=== PATIENT | female | born 1930 | race Caucasian/White ===

== ENCOUNTER 2017-02-16 11:55 | Inpatient (IN) | payer MEDICARE ==
[2017-02-16] VITALS (274 sets, daily range): BP systolic 143–180; BP diastolic 52–165; PULSE 76–103; TEMP 97.6–98.1; O2SAT 47–100
[~2017-02-16] VITALS: Ht 165.1 cm; Wt 72.6 kg
[~2017-02-16 11:55] MED LIST: AMARYL4 MG PO; COREG12.5 MG PO; GLUCOPHAGE1000 MG PO; HUMALOG100 U/ML SC; IRON1 POW PO; LANTUS100 U/ML SC; NATURAL IRON65 MG PO; NEURONTIN100 MG/CAP PO; NORVASC 5MG5 MG/TAB PO; PRINIVIL20 MG PO; THERA-D 40004000 IU PO; TYLENOL 325MG325 MG PO; ULTRAM 50MG TAB50 MG PO; VITAMIN B-12100 MCG PO
[2017-02-16] MEDS ORDERED: PLAVIX 75MG TAB75 MG PO (12:35)
[2017-02-16 13:44] LABS: BASO % 0.3 % (0.0-2.0); EOS # 0.3 (0.0-0.7); EOS % 5.6 % (0-4.0); GRAN # 4.4 (1.4-6.5); GRAN % 73.1 % (42.2-75.2); LYMPH # 0.6 (1.2-3.4); LYMPH % 9.6 % (20.0-51.0); MEAN CELL VOLUME 89 fl (80.0-100.0); MEAN CORPUSCULAR HGB CONC 34 g/dl (33.0-37.0); MEAN PLATELET VOLUME 11.1 fl (7.4-10.4); MONO # 0.7 (0.1-0.6); MONO % 10.9 % (1.7-9.3); PLATELET COUNT 273 K/mm3 (130-400); RED BLOOD COUNT 2.48 M/mm3 (4.10-5.30); WHITE BLOOD COUNT 6.1 K/mm3 (4.8-10.8)
[2017-02-16 13:45] LABS: HEMATOCRIT 22.1 % (37.0-47.0); HEMOGLOBIN 7.5 g/dl (12.5-16.0); MEAN CORPUSCULAR HEMOGLOBIN 30 pg (27.0-31.0)
[2017-02-16 13:52] LABS: ADJUSTED CALCIUM 8.7 mg/dL (8.4-10.2); ALBUMIN 3.5 gm/dL (3.5-5.0); CALCIUM 8.3 mg/dL (8.4-10.2); CREATININE, serum 3.42 mg/dL (0.52-1.25); POTASSIUM 3.8 mmol/L (3.4-5.0); TOTAL PROTEIN 5.9 gm/dL (6.4-8.2)
[2017-02-16 15:05] LABS: RETIC % 1.7 % (0.5-3.52)
[2017-02-17] VITALS (726 sets, daily range): BP systolic 124–178; BP diastolic 51–88; PULSE 77–93; TEMP 97.4–98.8; O2SAT 60–100
[2017-02-17 05:31] LABS: BASO % 0.2 % (0.0-2.0); EOS # 0.4 (0.0-0.7); GRAN # 3.9 (1.4-6.5); GRAN % 67.9 % (42.2-75.2); LYMPH # 0.8 (1.2-3.4); MEAN CELL VOLUME 92 fl (80.0-100.0); MEAN CORPUSCULAR HGB CONC 33 g/dl (33.0-37.0); MEAN PLATELET VOLUME 10.6 fl (7.4-10.4); MONO # 0.7 (0.1-0.6); MONO % 11.4 % (1.7-9.3); PLATELET COUNT 258 K/mm3 (130-400); RED BLOOD COUNT 2.28 M/mm3 (4.10-5.30); WHITE BLOOD COUNT 5.8 K/mm3 (4.8-10.8)
[2017-02-17 05:33] LABS: HEMATOCRIT 20.9 % (37.0-47.0); HEMOGLOBIN 6.8 g/dl (12.5-16.0); MEAN CORPUSCULAR HEMOGLOBIN 30 pg (27.0-31.0)
[2017-02-17 05:44] LABS: ADJUSTED CALCIUM 8.7 mg/dL (8.4-10.2); BILIRUBIN,TOTAL 0.7 mg/dL (0.0-1.0); CALCIUM 7.9 mg/dL (8.4-10.2); CREATININE, serum 3.33 mg/dL (0.52-1.25); POTASSIUM 3.8 mmol/L (3.4-5.0); TOTAL PROTEIN 5.4 gm/dL (6.4-8.2)
[2017-02-17 15:08] LABS: COLLECTION METHOD CATHETER
[2017-02-17 15:24] LABS: MUCOUS Present /lpf; PH 5 (5-8); SQUAMOUS EPITHELIAL 0-2 /hpf; URINE APPEARANCE Hazy; URINE BACTERIA Rare /hpf; URINE BILIRUBIN Negative (NEGATIVE); URINE BLOOD 3+ (NEGATIVE); URINE COLOR Yellow; URINE GLUCOSE 2+ (NEGATIVE); URINE KETONE Negative (NEGATIVE); URINE LEUKOCYTE ESTERASE 1+ (NEGATIVE); URINE PROTEIN(semi-quant) 1+ (NEGATIVE); URINE RBC 20-50 /hpf; URINE UROBILINOGEN Negative (NEGATIVE)
[2017-02-18] VITALS (365 sets, daily range): BP systolic 102–152; BP diastolic 46–70; PULSE 75–93; TEMP 98–99.1; O2SAT 45–100
[2017-02-18 07:59] LABS: BASO % 0.5 % (0.0-2.0); EOS # 0.2 (0.0-0.7); GRAN # 4.7 (1.4-6.5); GRAN % 78.8 % (42.2-75.2); LYMPH # 0.4 (1.2-3.4); LYMPH % 7.4 % (20.0-51.0); MEAN CELL VOLUME 92 fl (80.0-100.0); MEAN CORPUSCULAR HGB CONC 32 g/dl (33.0-37.0); MEAN PLATELET VOLUME 10.5 fl (7.4-10.4); MONO # 0.6 (0.1-0.6); MONO % 9.6 % (1.7-9.3); PLATELET COUNT 247 K/mm3 (130-400); RED BLOOD COUNT 2.88 M/mm3 (4.10-5.30); WHITE BLOOD COUNT 5.9 K/mm3 (4.8-10.8)
[2017-02-18 08:08] LABS: ADJUSTED CALCIUM 8.8 mg/dL (8.4-10.2); ALBUMIN 3.1 gm/dL (3.5-5.0); CALCIUM 8.1 mg/dL (8.4-10.2); CREATININE, serum 3.31 mg/dL (0.52-1.25); POTASSIUM 4.1 mmol/L (3.4-5.0); TOTAL PROTEIN 5.5 gm/dL (6.4-8.2)
[2017-02-18 08:15] LABS: HEMATOCRIT 26.5 % (37.0-47.0); HEMOGLOBIN 8.4 g/dl (12.5-16.0); MEAN CORPUSCULAR HEMOGLOBIN 29 pg (27.0-31.0)
[2017-02-19 04:42] VITALS: TEMP 98
[2017-02-19 08:00] VITALS: BP 132/59; PULSE 79; TEMP 98.4
[2017-02-19 08:15] LABS: BASO % 0.3 % (0.0-2.0); EOS # 0.1 (0.0-0.7); EOS % 0.7 % (0-4.0); GRAN # 10.3 (1.4-6.5); LYMPH # 0.6 (1.2-3.4); LYMPH % 5.2 % (20.0-51.0); MEAN CELL VOLUME 94 fl (80.0-100.0); MEAN CORPUSCULAR HGB CONC 31 g/dl (33.0-37.0); MEAN PLATELET VOLUME 11.2 fl (7.4-10.4); MONO # 1.1 (0.1-0.6); MONO % 9.1 % (1.7-9.3); PLATELET COUNT 266 K/mm3 (130-400); RED BLOOD COUNT 2.68 M/mm3 (4.10-5.30); WHITE BLOOD COUNT 12.2 K/mm3 (4.8-10.8)
[2017-02-19 08:18] LABS: CALCIUM 8.4 mg/dL (8.4-10.2); CREATININE, serum 3.61 mg/dL (0.52-1.25); POTASSIUM 3.6 mmol/L (3.4-5.0)
[2017-02-19 08:20] LABS: HEMATOCRIT 25.3 % (37.0-47.0); HEMOGLOBIN 7.8 g/dl (12.5-16.0); MEAN CORPUSCULAR HEMOGLOBIN 29 pg (27.0-31.0)
[2017-02-19 14:30] VITALS: BP 144/63; PULSE 85; TEMP 98
[2017-02-19 15:52] VITALS: BP 154/52; PULSE 81; TEMP 97.4
[2017-02-19 20:12] VITALS: BP 160/57; PULSE 78; TEMP 98.2
[2017-02-20] VITALS (15 sets, daily range): BP systolic 120–174; BP diastolic 36–87; PULSE 73–92; TEMP 97.8–98.8
[2017-02-20 07:19] LABS: BASO % 0.2 % (0.0-2.0); EOS # 0.2 (0.0-0.7); EOS % 2.1 % (0-4.0); GRAN # 6.5 (1.4-6.5); LYMPH # 0.5 (1.2-3.4); LYMPH % 5.9 % (20.0-51.0); MEAN CELL VOLUME 96 fl (80.0-100.0); MEAN CORPUSCULAR HGB CONC 31 g/dl (33.0-37.0); MEAN PLATELET VOLUME 11.7 fl (7.4-10.4); MONO # 0.9 (0.1-0.6); MONO % 11.1 % (1.7-9.3); PLATELET COUNT 186 K/mm3 (130-400); RED BLOOD COUNT 2.15 M/mm3 (4.10-5.30); WHITE BLOOD COUNT 8.1 K/mm3 (4.8-10.8)
[2017-02-20 07:26] LABS: HEMATOCRIT 20.6 % (37.0-47.0); HEMOGLOBIN 6.3 g/dl (12.5-16.0); MEAN CORPUSCULAR HEMOGLOBIN 29 pg (27.0-31.0)
[2017-02-20 07:45] LABS: CALCIUM 7.7 mg/dL (8.4-10.2); CREATININE, serum 3.49 mg/dL (0.52-1.25); POTASSIUM 3.6 mmol/L (3.4-5.0)
[2017-02-21] VITALS (8 sets, daily range): BP systolic 132–153; BP diastolic 32–57; PULSE 79–97; TEMP 98.1–101.2
[2017-02-21 06:43] LABS: BASO % 0.4 % (0.0-2.0); EOS % 0.4 % (0-4.0); GRAN # 9.6 (1.4-6.5); GRAN % 88.4 % (42.2-75.2); LYMPH # 0.2 (1.2-3.4); LYMPH % 2.2 % (20.0-51.0); MEAN CELL VOLUME 93 fl (80.0-100.0); MEAN CORPUSCULAR HGB CONC 33 g/dl (33.0-37.0); MEAN PLATELET VOLUME 11.8 fl (7.4-10.4); MONO # 0.8 (0.1-0.6); MONO % 7.2 % (1.7-9.3); PLATELET COUNT 188 K/mm3 (130-400); RED BLOOD COUNT 2.94 M/mm3 (4.10-5.30); WHITE BLOOD COUNT 10.8 K/mm3 (4.8-10.8)
[2017-02-21 06:44] LABS: HEMATOCRIT 27.4 % (37.0-47.0); HEMOGLOBIN 8.9 g/dl (12.5-16.0); MEAN CORPUSCULAR HEMOGLOBIN 30 pg (27.0-31.0)
[2017-02-21 07:01] LABS: CALCIUM 7.9 mg/dL (8.4-10.2); CREATININE, serum 3.81 mg/dL (0.52-1.25); POTASSIUM 3.3 mmol/L (3.4-5.0)
[2017-02-22 00:16] VITALS: BP 122/40; PULSE 77; TEMP 98.7
[2017-02-22 04:17] VITALS: BP 142/43; PULSE 75; TEMP 98.1
[2017-02-22 06:00] LABS: BASO # 0.1 (0.0-0.2); BASO % 0.5 % (0.0-2.0); EOS # 0.1 (0.0-0.7); EOS % 0.6 % (0-4.0); GRAN # 9.9 (1.4-6.5); GRAN % 88.6 % (42.2-75.2); LYMPH # 0.4 (1.2-3.4); LYMPH % 3.9 % (20.0-51.0); MEAN CELL VOLUME 94 fl (80.0-100.0); MEAN CORPUSCULAR HGB CONC 32 g/dl (33.0-37.0); MEAN PLATELET VOLUME 11.5 fl (7.4-10.4); MONO # 0.6 (0.1-0.6); MONO % 5.7 % (1.7-9.3); PLATELET COUNT 151 K/mm3 (130-400); RED BLOOD COUNT 2.91 M/mm3 (4.10-5.30); WHITE BLOOD COUNT 11.1 K/mm3 (4.8-10.8)
[2017-02-22 06:05] LABS: HEMATOCRIT 27.4 % (37.0-47.0); HEMOGLOBIN 8.7 g/dl (12.5-16.0); MEAN CORPUSCULAR HEMOGLOBIN 30 pg (27.0-31.0)
[2017-02-22 06:09] LABS: CALCIUM 7.9 mg/dL (8.4-10.2)
[2017-02-22 06:17] LABS: CREATININE, serum 4.05 mg/dL (0.52-1.25); POTASSIUM 2.9 mmol/L (3.4-5.0)
[2017-02-22 07:52] VITALS: BP 139/53; PULSE 76; TEMP 98.4
[2017-02-22 11:29] VITALS: BP 140/48; PULSE 76; TEMP 97.9
[2017-02-22 15:18] VITALS: BP 152/49; PULSE 73; TEMP 97.9
[2017-02-22 19:53] VITALS: BP 148/45; PULSE 80; TEMP 98.4
[2017-02-23 00:45] VITALS: BP 133/47; PULSE 73; TEMP 97.8
[2017-02-23 04:24] VITALS: BP 114/70; PULSE 78; TEMP 98.2
[2017-02-23 07:00] LABS: BASO # 0.1 (0.0-0.2); BASO % 0.6 % (0.0-2.0); EOS # 0.2 (0.0-0.7); EOS % 1.8 % (0-4.0); GRAN % 78.8 % (42.2-75.2); LYMPH # 0.6 (1.2-3.4); LYMPH % 7.1 % (20.0-51.0); MEAN CELL VOLUME 96 fl (80.0-100.0); MEAN CORPUSCULAR HGB CONC 32 g/dl (33.0-37.0); MONO % 10.7 % (1.7-9.3); PLATELET COUNT 147 K/mm3 (130-400); RED BLOOD COUNT 2.73 M/mm3 (4.10-5.30); WHITE BLOOD COUNT 8.8 K/mm3 (4.8-10.8)
[2017-02-23 07:16] LABS: HEMATOCRIT 26.1 % (37.0-47.0); HEMOGLOBIN 8.3 g/dl (12.5-16.0); MEAN CORPUSCULAR HEMOGLOBIN 30 pg (27.0-31.0)
[2017-02-23 07:33] LABS: CALCIUM 7.5 mg/dL (8.4-10.2)
[2017-02-23 07:39] LABS: CREATININE, serum 3.98 mg/dL (0.52-1.25)
[2017-02-23 08:24] VITALS: BP 121/61; PULSE 88; TEMP 97.8
[2017-02-23 11:33] VITALS: BP 144/50; PULSE 75; TEMP 97.6
[2017-02-23 12:15] LABS: ARTERIAL BLD GAS O2 SATURATION 94.8 % (92-100); ARTERIAL BLD GAS TCO2 CT 12.7; ARTERIAL BLOOD GAS BASE EXCESS -14.9 (-2-2); ARTERIAL BLOOD GAS HCO3 11.8 meq/L (22-26); ARTERIAL BLOOD GAS PO2 78.8 mmHg (80-100); ARTERIAL BLOOD GAS pH 7.21 (7.35-7.45); OXYHEMOGLOBIN 93.7 %
[2017-02-23 12:16] LABS: ALLEN TEST NO; ATS? YES
[2017-02-23 16:00] VITALS: BP 151/49; PULSE 77; TEMP 97.9
[2017-02-23 19:46] VITALS: BP 136/46; PULSE 70; TEMP 98.5
[2017-02-24] VITALS (8 sets, daily range): BP systolic 136–168; BP diastolic 45–55; PULSE 46–79; TEMP 97.3–98.8
[2017-02-24 15:32] LABS: MEAN CELL VOLUME 95 fl (80.0-100.0); MEAN CORPUSCULAR HGB CONC 31 g/dl (33.0-37.0); MEAN PLATELET VOLUME 11.7 fl (7.4-10.4); PLATELET COUNT 134 K/mm3 (130-400); RED BLOOD COUNT 2.77 M/mm3 (4.10-5.30)
[2017-02-24 15:33] LABS: ADD PATHOLOGY DIFF REVIEW NO; HEMATOCRIT 26.4 % (37.0-47.0); HEMOGLOBIN 8.2 g/dl (12.5-16.0); MEAN CORPUSCULAR HEMOGLOBIN 30 pg (27.0-31.0)
[2017-02-24 15:38] LABS: CALCIUM 7.7 mg/dL (8.4-10.2); MAGNESIUM 2.1 mg/dL (1.6-2.3); POTASSIUM 3.5 mmol/L (3.4-5.0)
[2017-02-24 15:47] LABS: CREATININE, serum 4.25 mg/dL (0.52-1.25)
[2017-02-24 15:51] LABS: BAND 18 % (0-10); LYMPHOCYTE 14 % (20.0-51.0); NEUTROPHILS 65 % (42.0-75.2); PLATELET ESTIMATE NORMAL (NORMAL); TOTAL CELLS COUNTED 100
[2017-02-24 15:53] LABS: ANISOCYTOSIS 1+
[2017-02-25 06:49] LABS: BASO # 0.1 (0.0-0.2); BASO % 0.6 % (0.0-2.0); EOS # 0.3 (0.0-0.7); EOS % 2.8 % (0-4.0); GRAN # 7.1 (1.4-6.5); GRAN % 77.8 % (42.2-75.2); LYMPH # 0.5 (1.2-3.4); LYMPH % 5.3 % (20.0-51.0); MEAN CELL VOLUME 97 fl (80.0-100.0); MEAN CORPUSCULAR HGB CONC 31 g/dl (33.0-37.0); MEAN PLATELET VOLUME 12.2 fl (7.4-10.4); MONO # 1.1 (0.1-0.6); MONO % 12.2 % (1.7-9.3); PLATELET COUNT 131 K/mm3 (130-400); RED BLOOD COUNT 2.65 M/mm3 (4.10-5.30); WHITE BLOOD COUNT 9.1 K/mm3 (4.8-10.8)
[2017-02-25 06:50] LABS: HEMATOCRIT 25.6 % (37.0-47.0); MEAN CORPUSCULAR HEMOGLOBIN 30 pg (27.0-31.0)
[2017-02-25 07:04] LABS: CALCIUM 7.6 mg/dL (8.4-10.2); POTASSIUM 3.2 mmol/L (3.4-5.0)
[2017-02-25 07:08] LABS: CREATININE, serum 4.21 mg/dL (0.52-1.25)
[2017-02-25 09:09] VITALS: BP 125/51; PULSE 59; TEMP 98
[2017-02-25 11:44] VITALS: BP 123/87; PULSE 73; TEMP 97.9
[2017-02-25 16:31] VITALS: BP 173/56; PULSE 77; TEMP 97.7
[2017-02-25 20:27] VITALS: BP 162/47; PULSE 75; TEMP 97.7
[2017-02-26] VITALS (15 sets, daily range): BP systolic 111–157; BP diastolic 35–90; PULSE 69–77; TEMP 97.4–98.5
[2017-02-26 06:42] LABS: PROTHROMBIN TIME 11.8 SECONDS (9.7-12.8)
[2017-02-26 11:06] LABS: MEAN CELL VOLUME 95 fl (80.0-100.0); MEAN CORPUSCULAR HGB CONC 31 g/dl (33.0-37.0); MEAN PLATELET VOLUME 11.3 fl (7.4-10.4); PLATELET COUNT 128 K/mm3 (130-400); RED BLOOD COUNT 2.58 M/mm3 (4.10-5.30); WHITE BLOOD COUNT 9.8 K/mm3 (4.8-10.8)
[2017-02-26 11:07] LABS: HEMATOCRIT 24.6 % (37.0-47.0); HEMOGLOBIN 7.7 g/dl (12.5-16.0); MEAN CORPUSCULAR HEMOGLOBIN 30 pg (27.0-31.0)
[2017-02-26 11:08] LABS: ADD PATHOLOGY DIFF REVIEW NO
[2017-02-26 11:18] LABS: ADJUSTED CALCIUM 8.4 mg/dL (8.4-10.2); ALBUMIN 2.7 gm/dL (3.5-5.0); BAND 18 % (0-10); BASOPHIL 1 % (0-2); BILIRUBIN,TOTAL 0.5 mg/dL (0.0-1.0); CALCIUM 7.4 mg/dL (8.4-10.2); EOSINOPHIL 1 % (0-4); LYMPHOCYTE 9 % (20.0-51.0); METAMYELOCYTE 2 % (0-0); NEUTROPHILS 63 % (42.0-75.2); PLATELET ESTIMATE NORMAL (NORMAL); POTASSIUM 3.5 mmol/L (3.4-5.0); TOTAL CELLS COUNTED 100; TOTAL PROTEIN 5.2 gm/dL (6.4-8.2)
[2017-02-26 11:20] LABS: HYPOCHROMIA 1+
[2017-02-26 11:24] LABS: CREATININE, serum 4.12 mg/dL (0.52-1.25)
[2017-02-26 23:55] LABS: HEPATITIS B CORE AB,TOTAL Negative (()); HEPATITIS B SURFACE AB-QL Negative (()); HEPATITIS B SURFACE ANTIBODY <2.0 (())
[2017-02-27] VITALS (9 sets, daily range): BP systolic 95–151; BP diastolic 33–62; PULSE 68–87; TEMP 98–99.1
[2017-02-27 06:49] LABS: MEAN CELL VOLUME 94 fl (80.0-100.0); MEAN CORPUSCULAR HGB CONC 32 g/dl (33.0-37.0); MEAN PLATELET VOLUME 12.1 fl (7.4-10.4); PLATELET COUNT 120 K/mm3 (130-400); WHITE BLOOD COUNT 10.9 K/mm3 (4.8-10.8)
[2017-02-27 06:51] LABS: ADD PATHOLOGY DIFF REVIEW NO; HEMATOCRIT 22.5 % (37.0-47.0); HEMOGLOBIN 7.2 g/dl (12.5-16.0); MEAN CORPUSCULAR HEMOGLOBIN 30 pg (27.0-31.0)
[2017-02-27 07:06] LABS: ADJUSTED CALCIUM 8.5 mg/dL (8.4-10.2); ALBUMIN 2.5 gm/dL (3.5-5.0); BILIRUBIN,TOTAL 0.6 mg/dL (0.0-1.0); CALCIUM 7.3 mg/dL (8.4-10.2); CREATININE, serum 3.27 mg/dL (0.52-1.25); MAGNESIUM 1.7 mg/dL (1.6-2.3); TOTAL PROTEIN 4.8 gm/dL (6.4-8.2)
[2017-02-27 07:15] LABS: POTASSIUM 2.8 mmol/L (3.4-5.0)
[2017-02-27 09:44] LABS: BAND 31 % (0-10); EOSINOPHIL 1 % (0-4); LYMPHOCYTE 2 % (20.0-51.0); NEUTROPHILS 57 % (42.0-75.2); PLATELET ESTIMATE NORMAL (NORMAL); TOTAL CELLS COUNTED 100
[2017-02-28] VITALS (10 sets, daily range): BP systolic 106–182; BP diastolic 39–52; PULSE 67–79; TEMP 97.8–98.7
[2017-02-28 02:53] LABS: HEMATOCRIT 23.8 % (37.0-47.0); HEMOGLOBIN 7.8 g/dl (12.5-16.0)
[2017-02-28 07:23] LABS: MEAN CELL VOLUME 92 fl (80.0-100.0); MEAN CORPUSCULAR HGB CONC 32 g/dl (33.0-37.0); MEAN PLATELET VOLUME 12.2 fl (7.4-10.4); PLATELET COUNT 135 K/mm3 (130-400); RED BLOOD COUNT 2.68 M/mm3 (4.10-5.30); WHITE BLOOD COUNT 9.3 K/mm3 (4.8-10.8)
[2017-02-28 08:10] LABS: ADD PATHOLOGY DIFF REVIEW NO; HEMATOCRIT 24.7 % (37.0-47.0); MEAN CORPUSCULAR HEMOGLOBIN 30 pg (27.0-31.0)
[2017-02-28 08:14] LABS: CALCIUM 7.5 mg/dL (8.4-10.2); CREATININE, serum 3.1 mg/dL (0.52-1.25); MAGNESIUM 1.7 mg/dL (1.6-2.3); PHOSPHOROUS 2.3 mg/dL (2.5-4.5)
[2017-02-28 08:20] LABS: POTASSIUM 2.7 mmol/L (3.4-5.0)
[2017-02-28 13:36] LABS: BAND 3 % (0-10); EOSINOPHIL 4 % (0-4); LYMPHOCYTE 15 % (20.0-51.0); NEUTROPHILS 72 % (42.0-75.2); TOTAL CELLS COUNTED 100
[2017-03-01] VITALS (21 sets, daily range): BP systolic 132–161; BP diastolic 42–68; PULSE 71–86; TEMP 97.8–98.8
[2017-03-01 06:13] LABS: MEAN CELL VOLUME 92 fl (80.0-100.0); MEAN CORPUSCULAR HGB CONC 32 g/dl (33.0-37.0); MEAN PLATELET VOLUME 11.8 fl (7.4-10.4); PLATELET COUNT 152 K/mm3 (130-400); RED BLOOD COUNT 2.62 M/mm3 (4.10-5.30); WHITE BLOOD COUNT 9.9 K/mm3 (4.8-10.8)
[2017-03-01 06:18] LABS: ADD PATHOLOGY DIFF REVIEW NO; HEMATOCRIT 24.1 % (37.0-47.0); HEMOGLOBIN 7.8 g/dl (12.5-16.0); MEAN CORPUSCULAR HEMOGLOBIN 30 pg (27.0-31.0)
[2017-03-01 06:36] LABS: CALCIUM 7.5 mg/dL (8.4-10.2); CREATININE, serum 3.51 mg/dL (0.52-1.25); MAGNESIUM 2.2 mg/dL (1.6-2.3); PHOSPHOROUS 2.4 mg/dL (2.5-4.5)
[2017-03-01 06:44] LABS: POTASSIUM 2.6 mmol/L (3.4-5.0)
[2017-03-01 07:01] LABS: BAND 12 % (0-10); BASOPHIL 1 % (0-2); EOSINOPHIL 2 % (0-4); LYMPHOCYTE 6 % (20.0-51.0); METAMYELOCYTE 4 % (0-0); MYELOCYTE 1 % (0-0); NEUTROPHILS 71 % (42.0-75.2); TOTAL CELLS COUNTED 100
[2017-03-01 07:03] LABS: PLATELET ESTIMATE NORMAL (NORMAL)
[2017-03-01 07:09] LABS: TOXIC GRANULATION PRESENT
[2017-03-02 03:34] VITALS: BP 140/51; PULSE 72; TEMP 97.9
[2017-03-02 06:41] LABS: MEAN CELL VOLUME 94 fl (80.0-100.0); MEAN CORPUSCULAR HGB CONC 32 g/dl (33.0-37.0); MEAN PLATELET VOLUME 12.1 fl (7.4-10.4); PLATELET COUNT 156 K/mm3 (130-400); RED BLOOD COUNT 2.44 M/mm3 (4.10-5.30); WHITE BLOOD COUNT 8.4 K/mm3 (4.8-10.8)
[2017-03-02 06:43] LABS: HEMATOCRIT 22.9 % (37.0-47.0); HEMOGLOBIN 7.3 g/dl (12.5-16.0); MEAN CORPUSCULAR HEMOGLOBIN 30 pg (27.0-31.0)
[2017-03-02 06:44] LABS: ADD PATHOLOGY DIFF REVIEW NO
[2017-03-02 07:00] LABS: CALCIUM 7.7 mg/dL (8.4-10.2); CREATININE, serum 2.2 mg/dL (0.52-1.25); MAGNESIUM 2.1 mg/dL (1.6-2.3); PHOSPHOROUS 1.7 mg/dL (2.5-4.5)
[2017-03-02 07:31] LABS: BAND 11 % (0-10); EOSINOPHIL 2 % (0-4); LYMPHOCYTE 20 % (20.0-51.0); METAMYELOCYTE 1 % (0-0); NEUTROPHILS 59 % (42.0-75.2); PLATELET ESTIMATE NORMAL (NORMAL); TOTAL CELLS COUNTED 100
[2017-03-02 07:32] LABS: HYPOCHROMIA 2+
[2017-03-02 07:56] VITALS: BP 152/43; PULSE 71; TEMP 98.2
[2017-03-02 12:40] VITALS: BP 131/47; PULSE 76; TEMP 97.6
[2017-03-02 16:31] VITALS: BP 135/50; PULSE 74; TEMP 98.3
[2017-03-02 19:32] VITALS: BP 123/55; PULSE 75; TEMP 98.6
[2017-03-03] VITALS (9 sets, daily range): BP systolic 115–148; BP diastolic 43–65; PULSE 70–88; TEMP 98.1–98.7
[2017-03-03 06:54] LABS: MEAN CELL VOLUME 96 fl (80.0-100.0); MEAN CORPUSCULAR HGB CONC 31 g/dl (33.0-37.0); PLATELET COUNT 161 K/mm3 (130-400); RED BLOOD COUNT 2.38 M/mm3 (4.10-5.30); WHITE BLOOD COUNT 8.9 K/mm3 (4.8-10.8)
[2017-03-03 06:56] LABS: ADD PATHOLOGY DIFF REVIEW NO; HEMATOCRIT 22.9 % (37.0-47.0); HEMOGLOBIN 7.2 g/dl (12.5-16.0); MEAN CORPUSCULAR HEMOGLOBIN 30 pg (27.0-31.0)
[2017-03-03 07:03] LABS: CALCIUM 7.5 mg/dL (8.4-10.2); CREATININE, serum 2.66 mg/dL (0.52-1.25); POTASSIUM 3.3 mmol/L (3.4-5.0)
[2017-03-03 07:24] LABS: PHOSPHOROUS 2.7 mg/dL (2.5-4.5)
[2017-03-03 07:59] LABS: BAND 12 % (0-10); LYMPHOCYTE 14 % (20.0-51.0); METAMYELOCYTE 1 % (0-0); NEUTROPHILS 70 % (42.0-75.2); PLATELET ESTIMATE NORMAL (NORMAL); TOTAL CELLS COUNTED 100
[2017-03-03 08:00] LABS: ANISOCYTOSIS 1+; HYPOCHROMIA 2+
[2017-03-04 00:12] VITALS: BP 127/55; PULSE 80; TEMP 98.6
[2017-03-04 00:58] VITALS: BP 127/53; PULSE 89; TEMP 98.9
[2017-03-04 01:28] VITALS: BP 134/55; PULSE 77; TEMP 98.8
[2017-03-04 02:46] VITALS: BP 146/48; PULSE 80; TEMP 97.5
[2017-03-04 06:41] LABS: MEAN CELL VOLUME 93 fl (80.0-100.0); MEAN CORPUSCULAR HGB CONC 33 g/dl (33.0-37.0); MEAN PLATELET VOLUME 11.7 fl (7.4-10.4); PLATELET COUNT 146 K/mm3 (130-400); RED BLOOD COUNT 3.01 M/mm3 (4.10-5.30); WHITE BLOOD COUNT 6.8 K/mm3 (4.8-10.8)
[2017-03-04 06:44] LABS: HEMATOCRIT 28.1 % (37.0-47.0); HEMOGLOBIN 9.2 g/dl (12.5-16.0); MEAN CORPUSCULAR HEMOGLOBIN 31 pg (27.0-31.0)
[2017-03-04 06:52] LABS: CALCIUM 7.6 mg/dL (8.4-10.2); CREATININE, serum 2.17 mg/dL (0.52-1.25); MAGNESIUM 1.9 mg/dL (1.6-2.3); POTASSIUM 3.7 mmol/L (3.4-5.0)
[2017-03-04 07:48] VITALS: BP 135/49; PULSE 72; TEMP 98.1
[2017-03-04 08:40] LABS: BAND 55 % (0-10); LYMPHOCYTE 7 % (20.0-51.0); METAMYELOCYTE 1 % (0-0); MYELOCYTE 1 % (0-0); NEUTROPHILS 33 % (42.0-75.2); TOTAL CELLS COUNTED 100
[2017-03-04 08:41] LABS: ANISOCYTOSIS 1+; PLATELET ESTIMATE NORMAL (NORMAL)
[2017-03-04 08:42] LABS: ADD PATHOLOGY DIFF REVIEW YES
[2017-03-04 09:09] LABS: PATHOLOGY DIFF REVIEW OK
[2017-03-04] MEDS ORDERED: COREG 3.123.125 MG/T PO (10:26)
[2017-03-04] MEDS ORDERED: TYLENOL 500MG500 MG PO (10:26)
[2017-03-04] MEDS ORDERED: SEROQUEL 2525 MG/TAB PO (10:27)
[2017-03-04] MEDS ORDERED: FLONASE NASAL S16 GM NS (10:27)
[2017-03-04] MEDS ORDERED: NAMENDA5 MG PO (10:27)
[2017-03-04] MEDS ORDERED: LANTUS SOLOS100 U/ML SQ (10:28)
[2017-03-04] MEDS ORDERED: FLAGYL500 MG PO (11:27)
[2017-03-04] MEDS ORDERED: ARICEPT 5MG PO (11:27)
[2017-03-04] MEDS ORDERED: NOVOLOG FLEX100 U/ML SQ (11:28)
[2017-03-04 11:52] VITALS: BP 135/49; PULSE 72; TEMP 98.1
== END 2017-03-04 14:52 | DRG 628 ==
LOC: ICU 11:55 → MEDICAL 02-18 19:30
PROVIDERS: Family Medicine; Internal Medicine; Internal Medicine Nephrology; Nurse Practitioner; Nurse Practitioner Family; Physician Assistant
PROC: 5A1D70Z Performance of Urinary Filtration, Intermittent, Less than 6 Hours Per Day (ICD-10-PCS; principal; 2017-02-26)
PROC: 02HV33Z Insertion of Infusion Device into Superior Vena Cava, Percutaneous Approach (ICD-10-PCS; 2017-02-26)
PROC: 03783ZZ Dilation of Left Brachial Artery, Percutaneous Approach (ICD-10-PCS; 2017-03-01)
PROC: B50W1ZZ Plain Radiography of Dialysis Shunt/Fistula using Low Osmolar Contrast (ICD-10-PCS; 2017-03-01)
PROC: B4141ZZ Fluoroscopy of Superior Mesenteric Artery using Low Osmolar Contrast (ICD-10-PCS; 2017-03-03)
PROC: B4181ZZ Fluoroscopy of Bilateral Renal Arteries using Low Osmolar Contrast (ICD-10-PCS; 2017-03-03)
DX: E11.65 Type 2 diabetes mellitus with hyperglycemia (principal); N18.6 End stage renal disease; G93.41 Metabolic encephalopathy; I12.0 Hypertensive chronic kidney disease with stage 5 chronic kidney disease or end stage renal disease; A04.72 Enterocolitis due to Clostridium difficile, not specified as recurrent; E87.2 Acidosis; D62 Acute posthemorrhagic anemia; N39.0 Urinary tract infection, site not specified; Z79.4 Long term (current) use of insulin; E11.22 Type 2 diabetes mellitus with diabetic chronic kidney disease; Z91.14 Patient's other noncompliance with medication regimen; Z87.891 Personal history of nicotine dependence; I25.10 Atherosclerotic heart disease of native coronary artery without angina pectoris; F03.90 Unspecified dementia, unspecified severity, without behavioral disturbance, psychotic disturbance, mood disturbance, and anxiety; D50.0 Iron deficiency anemia secondary to blood loss (chronic); E87.6 Hypokalemia; E83.39 Other disorders of phosphorus metabolism; I77.1 Stricture of artery; K86.89 Other specified diseases of pancreas
CPT/HCPCS: 87522; 99223-AI; 99231-AI; 99232-AI; 99233-AI; 99239; C1725; C1750; C1769; C1894; J0360; J0690; J0696; J0881; J1630; J1644; J1815; J2060; J2250; J2916; J3010; J3475; J3480; J7030; J7050; P9016; Q9967

== ENCOUNTER 2017-03-26 08:00 | Outpatient (RCR) | payer MEDICARE ==
[2017-03-25 17:46] VITALS: BP 122/48; PULSE 76; TEMP 97.8
[2017-03-25 18:01] VITALS: BP 124/49; PULSE 80; TEMP 98.1
[2017-03-25 18:31] VITALS: BP 130/53; PULSE 81; TEMP 98.4
[2017-03-25 19:31] VITALS: BP 134/53; PULSE 76; TEMP 97.1
[~2017-03-26] VITALS: Ht 165.1 cm; Wt 72.0 kg
[2017-03-26] VITALS (9 sets, daily range): BP systolic 110–143; BP diastolic 53–77; PULSE 80–88; TEMP 97.7–98.8
[~2017-03-26 08:00] MED LIST changes: +ARICEPT 5MG PO; +COREG 3.123.125 MG/T PO; +FLAGYL500 MG PO; +FLONASE NASAL S16 GM NS; +LANTUS SOLOS100 U/ML SQ; +NAMENDA5 MG PO; +NOVOLOG FLEX100 U/ML SQ; +PLAVIX 75MG TAB75 MG PO; +SEROQUEL 2525 MG/TAB PO; +TYLENOL 500MG500 MG PO
== END 2017-03-26 14:00 | disposition home or self-care (01) ==
LOC: EUO 08:00
DX: D64.9 Anemia, unspecified (principal)
CPT/HCPCS: J1644; J7050; P9016